=== PATIENT | female | born 1995 | race Caucasian/White ===

== ENCOUNTER 2022-04-20 05:05 | Inpatient (IN) | payer SELFPAY ==
--- NOTE | 2022-04-15 10:57 | PCM.HP.BLA ---
History and Physical Date of Admission: 04/20/22 Pre-Op History and Physical ? HPI: The patient is a 26 year old female presenting for pre-operative visit. She is scheduled for , for elective repeat cs at 39 weeks, GDMA2, obesity in on 04/20/22. Procedure discussed along with risks, benefits and complications. Other alternatives discussed for management. Consent form signed? Yes. ? ? PAST MEDICAL HISTORY PAST MEDICAL HISTORY Diagnosis Date ? GDM (gestational diabetes mellitus), class A1 03/04/2022 ? NEGATIVE MEDICAL HISTORY ? ? ? PAST SURGICAL HISTORY PAST SURGICAL HISTORY Procedure Laterality Date ? SECTION HX ? 06/03/2019 ? ? ? CURRENT MEDICATIONS Current Outpatient Medications Medication Sig Dispense Refill ? insulin NPH subcutaneous pen Inject 10 Units subcutaneously daily at bedtime. 1 Pen 0 ? aspirin, enteric coated (ASPIRIN, ENTERIC COATED) 81 mg EC tablet Take 81 mg by mouth once daily. ? ? ? PNV no.95/ferrous fum/folic ac ( ORAL) Take by mouth. ? ? ? Lactobacillus acidophilus (PROBIOTIC ORAL) Take by mouth. ? ? ? No current facility-administered medications for this visit. ? ? ALLERGIES: Patient has no known allergies. ? PERSONAL HISTORY: SOCIAL HISTORY Social History ? Tobacco Use ? Smoking status: Never ? Smokeless tobacco: Never Vaping Use ? Vaping Use: Never used Substance Use Topics ? Alcohol use: Not Currently ? Drug use: Never ? FAMILY HISTORY: FAMILY HISTORY FAMILY HISTORY Problem Relation Age of Onset ? No Known Problems Mother ? ? No Known Problems Father ? ? No Known Problems Sister ? ? No Known Problems Sister ? ? Heart Brother ? ? marfans syndrome ? No Known Problems Brother ? ? No Known Problems Brother ? ? No Known Problems Brother ? ? other (endometrial cancer) Maternal Grandmother ? ? No Known Problems Maternal Grandfather ? ? No Known Problems Paternal Grandmother ? ? COPD Paternal Grandfather ? ? ? REVIEW OF SYMPTOMS: negative except as noted above PHYSICAL EXAMINATION: ? VITALS: Blood pressure 124/85, weight 209 lb (94.8 kg), last menstrual period 07/20/2021. ? GENERAL: The patient is well nourished, well hydrated in no acute distress. , The patient is oriented to time, place, and person. NECK: full range of motion ABDOMEN: soft, gravid, non tender. ? IMPRESSION: 26yo @ 38.3 weeks, GDMA2, previous cs ? PLAN: @ 38.3 weeks. Repeat cs at 39+ weeks ? Pt has been counseled on risks/benefits and alternatives of surgery including but not limited to anesthesia, bleeding, infection, injury to pelvic structures including bowel, bladder, ureters and vessels. Pt wishes to proceed with surgery at this time. ? Pre and post op instructions reviewed Consent signed. ? I have reviewed and updated past medical and surgical history, medications and allergies Ena Byrnes MD
[2022-04-20] VITALS (22 sets, daily range): BP systolic 84–118; BP diastolic 35–83; PULSE 74–92; RESP 12–20; TEMP 36.1–37; O2SAT 96–99; BMI 40.0
[2022-04-20] MEDS: Lactated Ringers 1,000 ML 999 ML IV (05:45)
[2022-04-20] MEDS: Acetaminophen 500 MG Tablet 1000 MG PO ×3 (05:52→17:10)
[2022-04-20 06:05] LABS: Absolute Lymphocyte Count 2.67 X10^3/uL (0.83-4.51); Absolute Neutrophil Count 10.4 X10^3/uL (2.0-7.7); Basophil# 0.04 X10^3/uL; Basophil% 0.3 % (0-1); Eosinophil# 0.12 X10^3/uL; Eosinophils% 0.8 % (0-5); Hematocrit 37.6 % (37-47); Hemoglobin 12.8 g/dL (12.0-15.0); Lymphocyte # 2.67 X10^3/ul (0.83-4.51); Lymphocyte % 18.6 % (19-41); Mean Platelet Vol. 10.6 fl (6.2-12.0); Monocyte# 0.98 X10^3/uL; Monocyte% 6.8 % (0-10); NRBC Flagged by Analyzer 0 % (0-5); Neutrophil # 10.43 X10^3/uL (2.7-7.7); Neutrophil % 72.9 % (47-70); Platelet Count 217 K/mm3 (150-450); RBC Distribution Width CV 13.8 % (11.6-14.6); RBC Distribution Width SD 46.7 fl (35.1-43.9); Red Blood Count 4.13 M/mm3 (4.2-5.4); White Blood Count 14.3 K/mm3 (4.4-11.0)
--- NOTE | 2022-04-20 06:05 | NURSING ---
patient declines covid testing
[2022-04-20 06:21] LABS: Bedside Glucose 89 mg/dL (74-106)
[2022-04-20] MEDS: Lactated Ringers 1,000 ML 150 ML IV (06:45)
[2022-04-20] MEDS: Sodium Citrate/Citric Acid 30 ML UDC PO (06:47)
[2022-04-20] MEDS: Cefazolin 2 GM in 0.9% Normal Saline 100 ML IV (07:21)
--- NOTE | 2022-04-20 08:16 | EX.PCM.OBRPT ---
Details Operative Information Date of Procedure: 04/20/22 Pre-Operative Diagnosis: repeat elective CS at 39+ weeks, GDMA1 Post-Operative Diagnosis: Same, live female , Fibroid uterus, possible endometriosis on posterior aspect of uterus Indications for : Repeat Elective Classification: Scheduled Procedure Type: low transverse slot key person #1: Yris Galarza slot key person #2: MS veronica Type of Anesthesia: Spinal Special Medications: Duramorph Antibiotic Given: Ancef 2 grams IV x1 Drain: Shi to straight drain Estimated Blood Loss: 600 Fluids Replaced: 800 Procedure Start Time: :41 Procedure Stop Time: 08:18 Time of Delivery: 07:45 Findings Description of Procedure: After informed consent was obtained the patient was taken the operating room she was given spinal anesthesia. She was then placed in the supine position. She was prepped and draped in the normal sterile fashion. Anesthesia was found to be adequate. At this time a Pfannenstiel skin incision was made with a knife was carried down to the underlying layer of the fascia. The fascial incision was then extended laterally using curved Salguero scissor. Attention was then turned to the superior aspect of the fascial edge was grasped with 2 straight Marisol clamps tented up and the rectus muscle dissected off sharply using curved Salguero scissor. Attention was then turned to the inferior aspect where again Covington clamps were placed in the rectus muscles were tented up and the fascia was dissected off sharply using the curved Salguero scissor. Rectus muscles were then in the midline sharply and peritoneum was entered bluntly. Gentle opposing traction was placed. At this time the vesicouterine peritoneum was identified. Scalpel was used to make a uterine incision in a low transverse fashion. The uterus was then entered bluntly gentle opposing traction was placed to extend this incision. Membranes were ruptured clear. 's head was brought to the uterine incision was delivered atraumatically. delayed cord clamping performed- vigorous at . Mouth and nose were suctioned. Cord was clamped and cut infant was handed to the waiting nursery team. The Placenta was removed from the uterus. The uterus was then removed from the abdominal cavity. The uterus was cleared of all clots and debris using a lap. At this time the uterine incision was reapproximated using #1 Vicryl in a running locked fashion. 2nd imbricating layer with 1-0 vicryl in figure of eight fashion. Hemostasis was appreciated. Posterior cul-de-sac was then cleared of all clots and debris. Uterus was placed back in the abdominal cavity. Gutters were cleared of all clots and debris. Uterine incision was reevaluated and noted to be of excellent hemostasis. Ian placed. At this time the peritoneum and muscle. were grasped with Kellys reapproximated using #2 Vicryl suture in a running fashion. Fascia was then reapproximated using #1 PDS in a running fashion. Subcu layer was reapproximated with #2 0 plain gut suture in an interrupted fashion. Subcu layer was closed using 4-0 Monocryl in a subcu fashion. Dry sterile dressing was applied. Instrument lap needle count correct ?2. Anticipated normal postoperative course. Presentation: Positive for Vertex Amniotic Membrane Rupture Type: Artificial Amniotic Fluid Description: Clear Placental Delivery Description: Expressed Placenta Disposition: [facility] Cord Vessel Description: 3 Vessels Cord Entanglement: Around neck x 1, loose Nuchal Cord Compression: Without compression Infant A Gender: Female (1 minute): 8 (5 minute): 9 Delayed Cord Clamping: Yes Complications Risks of Surgery Discussed w/Patient: Bleeding, Anesthesia Risks, Infection and Injury to surrounding structure(s) including bowel and bladder
[2022-04-20] MEDS: Ketorolac 30 MG/ML Syringe IV ×3 (08:43→20:29)
[2022-04-20] MEDS: Oxytocin 30 units/NS 500 ml 30 UNITS/500 ML IV.SOLN 167 UNITS IV (09:38)
[2022-04-20 09:40] LABS: Bedside Glucose 81 mg/dL (74-106)
[2022-04-20] MEDS: Nalbuphine 10 MG/ML Ampul 5 MG IV (10:32)
[2022-04-20] MEDS: Senna/Docusate Sodium 1 Tablet PO (12:07)
[2022-04-20] MEDS: Lactated Ringers 1,000 ML 100 ML IV (12:47)
[2022-04-20] MEDS: 0.9% Saline Lock 10 ML Syringe IV (15:14)
[2022-04-20] MEDS: Enoxaparin 40 MG/0.4 ML Syringe SC (20:17)
[2022-04-21] VITALS (7 sets, daily range): BP systolic 111–115; BP diastolic 68–70; PULSE 85–97; RESP 16–18; TEMP 35.8–36.1; O2SAT 95–99
[2022-04-21] MEDS: Acetaminophen 500 MG Tablet 1000 MG PO ×2 (00:37→05:58)
[2022-04-21] MEDS: 0.9% Saline Lock 10 ML Syringe IV (03:27)
[2022-04-21] MEDS: Ketorolac 30 MG/ML Syringe IV (03:27)
[2022-04-21 06:24] LABS: Hematocrit 34.5 % (37-47); Hemoglobin 11.3 g/dL (12.0-15.0); Mean Corp Hgb Conc 32.8 g/dL (32-36); Mean Corpuscular Hgb 30.5 pg (27.0-32.0); Mean Corpuscular Volume 93.2 fL (81-99); Mean Platelet Vol. 10.5 fl (6.2-12.0); Platelet Count 206 K/mm3 (150-450); RBC Distribution Width CV 14.1 % (11.6-14.6); RBC Distribution Width SD 47.9 fl (35.1-43.9); White Blood Count 14.4 K/mm3 (4.4-11.0)
[2022-04-21 06:26] LABS: Bedside Glucose 71 mg/dL (74-106)
--- NOTE | 2022-04-21 09:02 | PCM.PN.OB ---
Subjective Subjective Pain controlled Objective Data Objective Data Vital Signs: Vital Signs Temp Pulse Resp BP Pulse Ox O2 Del Method 96.5 F L 85 16 112/69 99 Room Air 04/21/22 03:30 04/21/22 06:30 04/21/22 06:30 04/21/22 03:30 04/21/22 06:30 04/21/22 06:30 Oxygen Delivery Method Room Air Weight: 212 lb Body Mass Index (BMI) 40.0 Intake & Output: Intake and Output for Last 24 Hours 04/19/22 04/20/22 04/21/22 23:59 23:59 23:59 Intake Total 3356.67 / 3356.67 Output Total 2150 / 2150 Balance 1206.67 / 1206.67 Lab / Micro Data Result Diagrams: 04/21/22 06:18 Labs: Laboratory Results - last 24 hr 04/20/22 09:13: POC Glucose 81 04/21/22 05:57: POC Glucose 71 L 04/21/22 06:18: WBC 14.4 H, RBC 3.70 L, Hgb 11.3 L, Hct 34.5 L, MCV 93.2, MCH 30.5, MCHC 32.8, RDW Std Deviation 47.9 H, RDW Coeff of Kameron 14.1, Plt Count 206, MPV 10.5 Physical Exam Const alert, oriented x3 and no apparent distress HEENT normocephalic GI soft to palpation, non-tender and non-distended GI Narrative: fundus firm, mid & below umbilicus Incision - bandage c/d/i Extremity normal to inspection and no calf tenderness Assessment & Plan (1) care following delivery: COMMENT: POD#1 PLAN: Heme - HDS, CBC reviewed GI/ - no issues GDM - FBS normal this AM D/c home per patient request
--- NOTE | 2022-04-21 09:03 | DCINST_ITS ---
Discharge Instructions Diet Discharge Diet: No restrictions Activity Discharge Activity: May Shower May resume sexual activity in: 6 weeks Weight Bearing Status: Weight bearing as tolerated Dressing / Incision Call your doctor if your incision/area has: Continuous Slow Oozing, Sudden Increased Bleeding, Increased Pain/ Swelling, Increased Redness, Foul Smelling Discharge and Swelling at the incision site Call your doctor if you observe: Fever of 101 or Higher, Coldness, Increased Pain, Change in Color, Inability to urinate, Inability to have a bowel movement, Using more than 1 pad per hour, Shortness of breath, Dizziness, Fainting spells, Chest pain, Increased palpitations (irregular heartbeat), Calf discomfort and Uncontrolled pain Suture Line Care: Avoid Pulling/Pushing and Avoid Pinching/Bending Remove Dressing in: 1 week Cleanse incision/area with: Soap & Water Follow Up Care Please Follow Up With: Ena Osorio MD When: Follow up in 2 and 6 weeks for visits. Test Results: Test results from this visit will be discussed in further detail at your follow- up appointment, if applicable. Discharge Plan Admission Admit Date/Time: 04/20/22 05:05 Primary Reason for Your Visit: section Attending Provider: Ena Osorio Primary Care Provider: Missy Minor Primary Discharge Orders/Prescriptions Prescriptions: New acetaminophen 500 mg Tablet 1,000 mg PO Q6 Qty: 0 0RF ibuprofen 600 mg Tablet 600 mg PO Q6H Qty: 0 0RF Discontinued insulin aspart U-100 [Novolog Flexpen U-100 Insulin] 100 unit/mL (3 mL) Insulin Pen 14 unit SUBCUT DAILY Referrals / Follow Up: Care PhysicianMissy Primary [Primary Care Provider] - Disposition Disposition (needs filled in before D/C Order can be placed): Home, Self Care
[2022-04-21] MEDS: Ibuprofen 600 MG Tablet PO (09:18)
[2022-04-21] MEDS: Senna/Docusate Sodium 1 Tablet PO (09:18)
[2022-04-21] MEDS: Enoxaparin 40 MG/0.4 ML Syringe SC (09:18)
== END 2022-04-21 11:30 | disposition home or self-care (01) | DRG 788 ==
PROVIDERS: Admitting Provider Obstetrics & Gynecology; Visit Provider Obstetrics & Gynecology
PROC: 10D00Z1 Extraction of Products of Conception, Low, Open Approach (ICD-10-PCS; CPT 59514; principal; 2022-04-20 07:15)
DX: O24.424 Gestational diabetes mellitus in childbirth, insulin controlled (principal); O99.214 Obesity complicating childbirth; O34.219 Maternal care for unspecified type scar from previous cesarean delivery; Z3A.39 39 weeks gestation of pregnancy; Z37.0 Single live birth; O69.81X0 Labor and delivery complicated by cord around neck, without compression, not applicable or unspecified
CPT/HCPCS: 59025; 59050; 82962; 85025; 85027; 86850; 86900; 86901; 99218; J7120; A4216; G0378; J2405